=== PATIENT | male | born 1965 | race Hispanic/Latino ===

== ENCOUNTER 2021-05-10 21:36 | Emergency (ER) | payer SELFPAY ==
[2021-05-10 23:33] VITALS: BP 148/84
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
== END 2021-05-11 00:27 | disposition home or self-care (01) ==
LOC: ED 21:36
DX: S69.92XA Unspecified injury of left wrist, hand and finger(s), initial encounter (principal); I10 Essential (primary) hypertension; Z98.890 Other specified postprocedural states; W21.19XA Struck by other bat, racquet or club, initial encounter; Y93.89 Activity, other specified; Y92.89 Other specified places as the place of occurrence of the external cause; Y99.8 Other external cause status
CPT/HCPCS: 99283